=== PATIENT | male | born 1950 | race Two or more races ===

== ENCOUNTER 2016-08-10 17:58 | Emergency (ER) | payer OTHER ==
[~2016-08-10] VITALS: Ht 177.8 cm; Wt 78.0 kg
[2016-08-10] MEDS: GENTAMICIN SULFATE OPHT OINT 3.5 GM TUBE LEFTEYE ONE (18:42)
[2016-08-10] MEDS: TETRACAINE HCL 0.5% OPHT DROP 2 ML BOTTLE OP ONE (18:46)
[2016-08-10] MEDS: FLUORESCEIN SODIUM 1 MG STRIP OP ONE (18:46)
--- NOTE | 2016-08-10 18:49 | NUR ---
Written and verbal after care instructions given. Patient verbalizes understanding of instructions. Pt signed AMA form after speaking with Dr Pierce.
[2016-08-10] MEDS ORDERED: GENTAMICIN SULFATE OPHT OINT 3.5 GM TUBE ONE (18:53)
== END 2016-08-10 18:53 | disposition left against medical advice (07) ==
LOC: EDBD 18:01 → ER 18:01
DX: H21.02 Hyphema, left eye (principal)
CPT/HCPCS: A4663